=== PATIENT | male | born 1970 | race Caucasian/White ===

== ENCOUNTER 2023-07-28 10:30 | Emergency (ER) | payer OTHER, SELFPAY ==
--- NOTE | 2023-07-28 16:33 | PC.NURSE ---
Note all pt charting done on downtime papers
== END 2023-07-28 13:52 | disposition short-term general hospital (02) ==
PROVIDERS: Emergency Provider Nurse Practitioner Family; PCP Family Medicine
DX: S91.332A Puncture wound without foreign body, left foot, initial encounter (principal); W45.0XXA Nail entering through skin, initial encounter
CPT/HCPCS: 99213; G0463

== ENCOUNTER 2024-07-20 11:56 | Emergency (ER) | payer OTHER, SELFPAY ==
[2024-07-20 12:03] VITALS: BP 122/72; PULSE 70; RESP 16; TEMP 36.6; O2SAT 98
--- NOTE | 2024-07-20 12:22 | ED.EAR ---
HPI - Ear Problem General Chief complaint: Ear Stated complaint: Ear issues Time Seen by Provider: 07/20/24 12:22 Source: patient, RN notes reviewed and old records reviewed Mode of arrival: ambulatory Limitations: no limitations History of Present Illness HPI Narrative: 54-year-old [facility] bit anxious thinking he has something in his left ear. Has states it has been going on for approximately 3 weeks. Patient is not a great historian. Related Data Home Medications ?Medication ?Instructions ?Recorded ?Confirmed ?Last Taken ?Type No Home Medications 07/20/24 Unknown History Allergies Allergy/AdvReac Type Severity Reaction Status Date / Time No Known Allergies Allergy Verified 07/20/24 12:01 Review of Systems Review of Systems: All systems reviewed & are unremarkable except as noted in HPI and below Constitutional: Constitutional: Reports no additional constitutional complaints ENT: Reports as per HPI Cardiovascular: Cardiovascular: Reports no additional cardiovascular complaints, Denies chest pain and Denies dyspnea Respiratory: Respiratory: Reports no additional respiratory complaints, Denies chest congestion, Denies cough and Denies dyspnea Musculoskeletal: Musculoskeletal: Reports no additional musculoskeletal complaints Integumentary/Breasts: Skin/Breast: Reports system reviewed and no additional complaints, except as docu PMFSH Comments At the time of my signature, I reviewed and agree with the nursing past medical, surgical, social, and family history. There is no relevant family history pertinent to the patient complaint. Exam Const: General: cooperative, healthy appearing, comfortable, no acute distress, well developed, alert and well nourished Nutritional Appearance: well nourished Orientation/consciousness: patient oriented x3 Limitations: no limitations HENMT: Head: normal to inspection Ears: hearing grossly normal bilaterally, external ears normal, EAC's normal, mastoids normal, no periauricular adenopathy and TM abnormal with fluid behind the TM bilateral ( Greater on left than the right) Eyes: General: appearance normal, both eyes and all related structures Alignment and Position: alignment normal Neck: Neck: normal visual inspection, full ROM, no lymphadenopathy and no meningeal signs Chest: Chest palpation & inspection: normal inspection of the chest Resp: Effort & Inspection: normal respiratory effort and able to speak in complete sentences Cardio: Rate: regular rate Skin: General skin exam: normal color and no rashes or lesions noted Neuro: General: patient oriented x3, gait normal, moves all extremities and no meningeal signs Cognition (Neuro): normal cognition Speech: normal speech Gait exam (Neuro): Normal gait present Extrem: General: normal to inspection, full ROM, capillary refill normal and normal gait Psych: Appearance: grossly normal and well kempt Mental Status: mental status grossly normal Speech and movement: Normal speech and movement present and Clear speech present Affect: normal affect Attitude: cooperative Course Course Level of Care: Express Care Visit Vital Signs Vital signs: Vital Signs Temperature 97.8 F 07/20/24 12:03 Pulse Rate 70 07/20/24 12:03 Respiratory Rate 16 07/20/24 12:03 Blood Pressure 122/72 07/20/24 12:03 Pulse Oximetry 98 07/20/24 12:03 Oxygen Delivery Room Air 07/20/24 12:03 Temperature 97.8 F 07/20/24 12:03 Pulse Rate 70 07/20/24 12:03 Respiratory Rate 16 07/20/24 12:03 Blood Pressure 122/72 07/20/24 12:03 Pulse Oximetry 98 07/20/24 12:03 Oxygen Delivery Room Air 07/20/24 12:03 Reviewed Medical Decision Making MDM Narrative Medical decision making narrative: patient sitting in exam room, anxious to go smoke. Patient is reporting that it feels something is in his left ear. No foreign bodies noted. Patient appropriate for outpatient treatment and follow-up Discharge instructions reviewed with patient, as well as provided in writing per nursing staff. The instructions also include specific and strict return/GO TO THE ER as well as f/u information. All questions have been answered, and the patient deny any further questions with discharge and discharge plan. Some parts of this dictation were generated by voice recognition software and may contain typographical and/or grammatical inaccuracies. Differential Diagnosis Differential Diagnosis: foreign body, otitis media, otitis externa, serous otitis Medical Records Medical records reviewed: Yes I reviewed the external patient's medical records. Vital Signs Vital Signs: Vital Signs Temperature 97.8 F 07/20/24 12:03 Pulse Rate 70 07/20/24 12:03 Respiratory Rate 16 07/20/24 12:03 Blood Pressure 122/72 07/20/24 12:03 Pulse Oximetry 98 07/20/24 12:03 Oxygen Delivery Room Air 07/20/24 12:03 Temperature 97.8 F 07/20/24 12:03 Pulse Rate 70 07/20/24 12:03 Respiratory Rate 16 07/20/24 12:03 Blood Pressure 122/72 07/20/24 12:03 Pulse Oximetry 98 07/20/24 12:03 Oxygen Delivery Room Air 07/20/24 12:03 Reviewed Lab Data Lab results reviewed: Yes I reviewed the patient's lab results. Labs: Reviewed Critical Care Time Critical Care Time Critical Care Time: No Discharge Plan Discharge Clinical Impression: Acute serous otitis media of left ear Patient Disposition: Home, Self-Care Condition: Stable Instructions: Antibiotic Form, Fluid In The Ear (Serous Otitis Media) (ED) Additional Instructions: take allergy medication as prescribed Patient Language: Congolese Prescriptions: No Action No Home Medications Follow-up/Referrals: PHYSICIAN,EXTRACTOR MACHINE OPERATOR [Primary Care Provider] - Time of Disposition: 12:26
--- OUTSIDE RECORDS SUMMARY | 2024-07-20 13:16 | XMS_ITS ---
Author Organization [facility] Address [address] [place] [address] Phone Care Team Providers Care Neurobiologist Name Role Phone YOMI OBRIEN M.D. Primary Care Provider Juni hernandez Plan of Treatment No Plan of Treatment Recorded Assessments Includes: Assessments for all patient encounters No Assessments Recorded Medical Equipment - Implanted Devices Includes: Current and historical Devices No Medical Equipment Recorded Medications Administered Includes: Administered Medications in patient's chart No Administered Medications Recorded Results Includes: Results from 07/21/2023 through 07/20/2024 No Results Recorded For Specified Dates History of Present Illness History of Present Illness not supported for this document type No History of Present Illness Recorded Social History No Social History Recorded - Smoking Status Unknown Medical History Includes: Medical History in patient's chart No Medical History Recorded Family History Includes: Family History in patient's chart No Family History Recorded Review of Systems Review of Systems not supported for this document type No Review of Systems Recorded Mental Status No Mental Status Recorded Functional Status No Functional Status Recorded Physical Exam Physical Exam not supported for this document type No Physical Exam Recorded Clinical Notes Includes: Signed Clinical Notes starting from 05/11/2022 No Clinical Notes Recorded
--- OUTSIDE RECORDS SUMMARY | 2024-07-20 13:17 | XMS_ITS ---
Care Plan - [facility] Created on: July 20, 2024 JOSÉ ANTONIO SCOTT : 1970 Sex: Male Author Organization [facility] Address [address] [place] [address] Phone Care Team Providers Care Recreation Leader Name Role Phone YOMI OBRIEN M.D. Primary Care Provider Juni hernandez
--- OUTSIDE RECORDS SUMMARY | 2024-07-20 13:17 | XMS_ITS ---
Author Organization [facility] Address [address] [place] [address] Phone Care Team Providers Care Leaf Tier Name Role Phone YOMI OBRIEN M.D. Primary [...]
--- OUTSIDE RECORDS SUMMARY | 2024-07-20 13:17 | XMS_ITS ---
Care Plan - [facility] Created on: July 20, 2024 JOSÉ ANTONIO SCOTT : 1970 Sex: Male Author Organization [facility] Address [address] [place] [address] Phone Care Team Providers Care Lime Slaker Name Role Phone YOMI OBRIEN M.D. Primary Care Provider Juni hernandez
== END 2024-07-20 12:30 | disposition home or self-care (01) ==
PROVIDERS: Emergency Provider Nurse Practitioner
DX: H65.02 Acute serous otitis media, left ear (principal)
CPT/HCPCS: 99211; G0463